=== PATIENT | male | born 1970 | race Caucasian/White ===

== ENCOUNTER 2021-01-21 12:42 | Day surgery (SDC) | payer MEDICAID ==
[2021-01-18 12:57] LABS: Basophils # (auto) 0.1 10 ^3/uL (0-0.2); Basophils % (auto) 0.9 % (0.0-2.0); Eosinophils # (auto) 0.1 10 ^3/uL (0-0.8); Eosinophils % (auto) 1.1 % (0.0-7.0); Hematocrit 49.9 % (41.0-53.0); Hemoglobin 16.9 g/dL (13.5-17.5); Lymphocytes # (auto) 1.7 10 ^3/uL (0.4-5.4); Lymphocytes % (auto) 17.3 % (10.0-50.0); Mean Corpuscular Hemoglobin 28.6 pg (28.0-32.0); Mean Corpuscular Hgb Conc. 33.8 g/dL (32.0-36.0); Mean Corpuscular Volume 84.8 fL (80.0-100.0); Monocytes # (auto) 0.5 10 ^3/uL (0-1.3); Monocytes % (auto) 4.7 % (0.0-12.0); Neutrophils # (auto) 7.5 10 ^3/uL (1.6-8.6); Red Blood Cells 5.89 10^6/uL (4.5-5.90); White Blood Cell 9.9 10^3/uL (4.4-10.8)
[2021-01-18 13:13] LABS: Albumin 4.2 g/dL (3.4-5.0); Calcium 9.3 mg/dL (8.5-10.1); Potassium 3.8 mmol/L (3.5-5.1)
[2021-01-18 13:16] LABS: BUN/Creatinine Ratio 14.7; Bilirubin, Total 0.3 mg/dL (0.2-1.0)
[~2021-01-21] VITALS: Ht 188 cm; Wt 111.1 kg
[~2021-01-21 12:42] MED LIST: ATO40T PO; ATOM25CA PO; CHOL20004 PO; LACT12LO26 EX; LISI20TA28 PO; METF-370 PO; METO25TA5 PO; OMEP-386 PO; VENL1TAB99 PO; diphenhdrAMINE HCL 50 MG/1 ML VL ONE
[2021-01-21] MEDS: fentaNYL CITRATE 100 MCG/2 ML VL ONE ×3 (13:48→13:54)
[2021-01-21] MEDS: MIDAZOLAM HCL 5 MG/ML-1ML VIAL ONE ×4 (13:48→14:05)
[2021-01-21 14:45] VITALS: BP 109/74
== END 2021-01-21 14:50 | disposition home or self-care (01) ==
LOC: GI 12:42
PROVIDERS: ATTEND Internal Medicine Gastroenterology
DX: Z12.11 Encounter for screening for malignant neoplasm of colon (principal); D12.5 Benign neoplasm of sigmoid colon; K64.8 Other hemorrhoids; K21.9 Gastro-esophageal reflux disease without esophagitis; E11.9 Type 2 diabetes mellitus without complications; I10 Essential (primary) hypertension; Z98.890 Other specified postprocedural states; Z86.010 Personal history of colon polyps; Z68.31 Body mass index [BMI] 31.0-31.9, adult
CPT/HCPCS: 36415; 45385; 80053; 85025; 88305; J1200; J2250; J3010; J7030; U0003; 99152